=== PATIENT | female | born 1995 | race Caucasian/White ===

== ENCOUNTER 2017-12-12 09:09 | Emergency (ER) | payer OTHER ==
[~2017-12-12] VITALS: Ht 160 cm; Wt 63.5 kg
[2017-12-12] MEDS ORDERED: ESCI20TA PO (09:17)
[2017-12-12] MEDS ORDERED: BUSP15TA3 PO (09:17)
[2017-12-12] MEDS ORDERED: LORA-259 PO (09:17)
[2017-12-12] MEDS ORDERED: MORPHINE SULFATE 2 MG/1 ML DISP.SYRIN IV ONE (09:30)
[2017-12-12] MEDS ORDERED: IV NORMAL SALINE 1000 ML BAG IV ONE (09:30)
[2017-12-12] MEDS ORDERED: ONDANSETRON 4 MG/2 ML VIAL IV ONE (09:30)
[2017-12-12] MEDS ORDERED: MORPHINE SULFATE 2 MG/1 ML DISP.SYRIN ONE (09:43)
[2017-12-12] MEDS ORDERED: ONDANSETRON 4 MG/2 ML VIAL ONE (09:43)
[2017-12-12] MEDS ORDERED: MORPHINE SULFATE 4 MG/1 ML DISP.SYRIN ONE (10:42)
--- NOTE | 2017-12-12 11:00 | NUR ---
Pt signed consent for CT abd/pelvis with IV contrast after Dr. Sr discussed the procedure with the pt.
[2017-12-12 11:04] LABS: *BILIRUBIN,URIN NEGATIVE (NEGATIVE); *BLOOD, URINE Trace-intact (NEGATIVE); *CLARITY,URINE CLEAR (CLEAR); *COLOR,URINE YELLOW (YELLOW); *KETONES,URINE NEGATIVE (NEGATIVE); *PROTEIN,URINE NEGATIVE (NEGATIVE); *UROBILINOGEN,URINE 0.2 E.U./dl (NORMAL); LEUKOCYTE ESTERASE ,URINE NEGATIVE (NEGATIVE); NITRITE, URINE NEGATIVE (NEGATIVE); PH,URINE 6.5 (5.0-8.0); UGLUCOSE NEGATIVE (NEGATIVE)
[2017-12-12 11:13] LABS: BACTERIA,URINE FEW /HPF (NONE SEEN); SQUAMOUS EPITHELIAL CELL,UR FEW /HPF (NONE SEEN); WBC,URINE 0-3 /HPF (0-3)
[2017-12-12 11:14] LABS: URINE AMORPHOUS URATE FEW /HPF
[2017-12-12] MEDS ORDERED: MORPHINE SULFATE 4 MG/1 ML DISP.SYRIN IV ONE (11:15)
[2017-12-12] MEDS ORDERED: IOHEXOL 300MG/ML 100 ML INFUS..BTL ONE (11:21)
[2017-12-12] MEDS ORDERED: IV NORMAL SALINE 100 ML ONE (11:21)
[2017-12-12] MEDS ORDERED: SWABABLE VALVE TRANSFER SET EA MC ONE (11:21)
[2017-12-12 11:32] LABS: BASOPHILS % (AUTO) 0.7 % (0.0-2.0); EOSINOPHILS # (AUTO) 0.1 K/uL (0.0-0.7); EOSINOPHILS % (AUTO) 1.4 % (0.0-7.0); HEMATOCRIT 35.6 % (31.2-41.9); LYMPHOCYTES # (AUTO) 0.8 K/uL (20.0-40.0); LYMPHOCYTES % (AUTO) 21.6 % (20.5-51.5); MEAN CORPUSCULAR HEMOGLOBIN 30.9 uug (24.7-32.8); MEAN CORPUSCULAR HGB CONC 34 g/dL (32.3-35.6); MEAN CORPUSCULAR VOLUME 91.5 fL (75.5-95.3); MONOCYTES # (AUTO) 0.2 K/uL (2.0-10.0); MONOCYTES % (AUTO) 5.8 % (0.0-11.0); NEUTROPHILS # (AUTO) 2.7 K/uL (1.8-8.9); NEUTROPHILS % (AUTO) 70.5 % (38.5-71.5); PLATELET COUNT (AUTO) 165 K/uL (179-408); RED BLOOD CELL COUNT(AUTO) 3.89 MIL/uL (3.63-4.92); WHITE BLOOD COUNT (AUTO) 3.9 K/uL (3.8-11.8)
[2017-12-12 11:36] LABS: CREATININE 0.8 mg/dL (0.6-1.3); POTASSIUM 3.9 mmol/L (3.5-5.1)
[2017-12-12 11:41] LABS: BILIRUBIN,TOTAL 0.1 mg/dL (0.2-1.0)
--- NOTE | 2017-12-12 11:48 | NUR ---
Pt out of Er for CT.
--- NOTE | 2017-12-12 12:13 | NUR ---
Patient is resting comfortably in bed watching tv. Denies pain.
[2017-12-12] MEDS ORDERED: AZITHROMYCIN 250 MG TABLET PO ONE (12:45)
[2017-12-12] MEDS ORDERED: CEFTRIAXONE 500 MG VIAL IV ONE (12:45)
[2017-12-12] MEDS ORDERED: AZITHROMYCIN 250 MG TABLET ONE (12:50)
[2017-12-12] MEDS ORDERED: CEFTRIAXONE 500 MG VIAL ONE (12:50)
[2017-12-12 13:39] VITALS: BP 110/67
--- NOTE | 2017-12-12 13:40 | NUR ---
IV removed. Catheter intact and site benign. Pressure and 4x4 gauze applied to site. No bleeding noted.
--- NOTE | 2017-12-12 13:40 | NUR ---
Patient discharged to home in stable conditon. Written and verbal after care instructions given. Patient verbalizes understanding of instructions.
[2017-12-14 22:07] LABS: *GC NAA Negative (Negative); *TRIC.VAG. NAA Negative (Negative)
== END 2017-12-12 13:40 | disposition home or self-care (01) ==
LOC: ER 09:09
DX: R10.30 Lower abdominal pain, unspecified (principal); D69.6 Thrombocytopenia, unspecified; Z79.899 Other long term (current) drug therapy
CPT/HCPCS: 36415; 74177; 76856; 80053; 81001; 84703; 85025; 87210; 87491; 96361; 96374; 96375; 96376; 99285; A4663; J0696; J2270 ×2; J2405; J3490; J7030; Q0144; Q9967